=== PATIENT | male | born 1935 | race Caucasian/White ===

== ENCOUNTER 2016-10-02 13:58 | Outpatient (CLI) | payer MEDICARE, BC ==
[2016-10-03 16:37] LABS: Prothrombin Time 22.1 SEC (12.0-14.7)
== END 2016-10-02 13:59 | disposition home or self-care (01) ==
LOC: HPCALD 13:58
PROVIDERS: ATTEND Family Medicine
DX: Z51.81 Encounter for therapeutic drug level monitoring (principal); Z79.01 Long term (current) use of anticoagulants; I48.91 Unspecified atrial fibrillation
CPT/HCPCS: 36415; 85610